=== PATIENT | female | born 1995 | race Caucasian/White ===

== ENCOUNTER 2020-12-07 17:34 | Emergency (ER) | payer SELFPAY ==
[2020-12-07 18:13] VITALS: BP 138/90; PULSE 74; RESP 18; TEMP 36.6; O2SAT 100
[2020-12-07 19:25] VITALS: BP 153/80; PULSE 69; RESP 18; TEMP 37.2; O2SAT 99
--- NOTE | 2020-12-07 19:28 | W.ED.GENAD ---
Discharge Plan Disposition Patient Disposition: HOME Condition: Stable Discharge Details Clinical Impression: Puncture wound of plantar aspect of right foot Primary Care Provider: Unknown,Unknown ED Provider: Piter Berry Home Meds and New Rx's Prescriptions: New ciprofloxacin HCl [Cipro] 500 mg tablet 500 mg PO BID Qty: 20 RF: 0 Discharge Instructions Instructions: Puncture Wound (ED) Additional Instructions: Tetanus has been updated. Please take Cipro as directed. X-ray recommended but declined. Please watch for new or worsening symptoms and return to the ER for any concerns. Otherwise contact her primary care provider on Thursday to discuss ER visit need for outpatient reevaluation. Medical Decision Making 25-year-old female presents for a plantar puncture wound of the fourth right toe. Reports tetanus status is not up-to-date. Will update tetanus now. Patient is agreeable to initiating antibiotic therapy but declines an x-ray. We discussed the risks of retained foreign body, patient understands but declines x-ray. Puncture wound was cleaned and dressed. Patient has no additional questions or concerns and is comfortable discharge at this time. HPI General Mode of arrival: ambulatory. Date/Time Provider Initiated Documentation: 12/07/20 19:28. Limitations to Documentation: no limitations. Information obtained by: patient. HPI Narrative: This is a 25-year-old female presents to the ER after stepping on a nail around 4-5 PM today while wearing rubber soled shoes. She had a very superficial puncture wound to her right foot, fourth toe. Denies any pain, numbness, tingling, weakness. Patient is currently asymptomatic. She has no additional questions or concerns. States the area did bleed minimally, cleaned thoroughly. Related Data Home Medications Medication Instructions Recorded Confirmed ciprofloxacin HCl [Cipro] 500 mg PO BID #20 tab 12/07/20 Previous Rx's Medication Instructions Recorded ciprofloxacin HCl [Cipro] 500 mg PO BID #20 tab 12/07/20 Allergies Allergy/AdvReac Type Severity Reaction Status Date / Time No Known Allergies Allergy Unverified 12/07/20 18:16 General Stated Complaint: Laceration ALMA: 5 Review of Systems Constitutional Constitutional: Denies fever(s) and Denies weakness Musculoskeletal Musculoskeletal: Denies arthralgias, Denies numbness and Denies tingling Integumentary/Breasts Skin/Breast: Denies erythema Neurologic Neurologic: Denies numbness, Denies tingling and Denies weakness [facility] Social History Smoking/Tobacco Use Status: Never Smoking risk assessment performed?: Yes Alcohol Intake: current Drug use: Never Substance use type: does not use Do you feel safe at home: Yes Do you feel safe in your relationship?: Yes Exam Const General: cooperative, healthy appearing, comfortable and no acute distress Orientation: alert and awake [facility] Head: normal to inspection, normocephalic and atraumatic Eyes General: appearance normal, both eyes and all related structures Conjunctivae: conjunctivae normal Neck Neck: normal visual inspection, trachea midline and supple Resp Effort & Inspection: normal respiratory effort and able to speak in complete sentences Cardio Rate: regular rate Rhythm: regular rhythm Skin General skin exam: no rashes or lesions noted Neuro General: patient alert, patient awake, moves all extremities and no focal motor deficits Cognition: normal cognition Speech: speech normal Gait: normal gait Motor: muscle tone normal throughout Sensory Exam: no sensory deficits noted Extrem General: full ROM, capillary refill normal and normal gait Ankle/foot/toe images: 1. Nontender, nonbleeding, puncture wound. No obvious foreign body. Neuro, vascular, tendon intact. Full range of motion. Psych Appearance: grossly normal Mental Status: mental status grossly normal Course Vital Signs Vital signs: Vital Signs Temperature 36.6 C 12/07/20 18:13 Pulse 74 12/07/20 18:13 Respiratory Rate 18 12/07/20 18:13 Blood Pressure 138/90 12/07/20 18:13 Pulse Oximetry 100 12/07/20 18:13 Temperature 37.2 C 12/07/20 19:25 Temperature Source Temporal Artery Scan 12/07/20 19:25 Pulse 69 12/07/20 19:25 Respiratory Rate 18 12/07/20 19:25 Respiratory Effort 12/07/20 19:25 Respiratory Depth Normal 12/07/20 19:25 Respiratory Pattern Normal 12/07/20 19:25 Blood Pressure 153/80 H 12/07/20 19:25 Blood Pressure Mean 104 12/07/20 19:25 Blood Pressure Position Sitting 12/07/20 19:25 Pulse Oximetry 99 12/07/20 19:25 Oxygen Delivery Method Room Air 12/07/20 19:25 Oxygen Flow Rate 0 12/07/20 19:25 Pain Level 1 12/07/20 19:25
== END 2020-12-07 19:42 | disposition home or self-care (01) ==
PROVIDERS: Emergency Provider Physician Assistant
DX: S91.134A Puncture wound without foreign body of right lesser toe(s) without damage to nail, initial encounter (principal); W45.0XXA Nail entering through skin, initial encounter
CPT/HCPCS: 90471; 99284; 99283

== ENCOUNTER 2021-04-15 17:12 | Emergency (ER) | payer SELFPAY ==
[2021-04-15 17:25] VITALS: BP 136/83; PULSE 97; RESP 16; TEMP 37.3; O2SAT 97
--- NOTE | 2021-04-15 17:32 | ED.GENADUL_ITS ---
Discharge Plan Disposition Patient Disposition: HOME Condition: Improving Discharge Details Chief Complaint: Laceration Clinical Impression: Laceration of hand, left Primary Care Provider: Unknown,Unknown ED Provider: Frederick Taylor Home Meds and New Rx's Prescriptions: No Action No Known Home Meds RF: 0 Discharge Instructions Instructions: Laceration (ED) Additional Instructions: Leave current dressing in place for 2 days time. Then may remove. You will require daily Band-Aid/Band-Aid changes. Return if you develop a fever, redness, foul-smelling drainage from the wound or any other acute concerns. Please return for suture removal in 7 to 10 days time. Medical Decision Making 25-year-old female presents for left hand laceration off from the metal edge of a kitchen stove. She recently had her tetanus updated, there is no motor weakness and no sensory deficits. Wounds irrigated, anesthetized, examined in a bloodless field without evidence of foreign body, repaired with interrupted suture. Wound was dressed. Patient stable and improved. She will return for suture removal. HPI General Mode of arrival: ambulatory . Date/Time Provider Initiated Documentation: 04/15/21 17:12 . Limitations to Documentation: no limitations . Information obtained by: patient . History of Present Illness 25 year old F presents to the emergency department with the chief complaint of Left hand laceration, described as mild, Quality is described as dull and constant, and is localized to the left and upper extremity. Patient reports no radiation. Patient started experiencing this minute(s) and it has been constant. No relieving factors improve symptom(s), No exacerbating factors reported . Patient notes no other symptoms.. Patient did receive the following treatments prior to arrival, none Related Data Home Medications Medication Instructions Recorded Confirmed Unknown [No Known Home Meds] 04/15/21 04/15/21 Allergies Allergy/AdvReac Type Severity Reaction Status Date / Time No Known Allergies Allergy Unverified 04/15/21 17:27 General Stated Complaint: Laceration ALMA: 4 Review of Systems Narrative: Tetanus is up-to-date. No other injury. Has otherwise been well. 4 systems reviewed [facility] All Active Problems (Updated 04/15/21 @ 17:53 by Frederick Taylor MD) Puncture wound of plantar aspect of right foot (Acute) Laceration of hand, left (Acute) Social History Smoking/Tobacco Use Status: Never Smoking risk assessment performed?: Yes Alcohol Intake: current Alcohol Intake frequency: a few times a week Drug use: Never Substance use type: does not use Do you feel safe at home: Yes Do you feel safe in your relationship?: Yes Exam Narrative Exam Narrative: GEN: awake, alert, oriented 3. Pleasant, well groomed, interactive. EXT: Full ROM, laceration on the thenar eminence, palmar side of left hand. Sensation is intact throughout. Normal motor function including flexion abduction abduction of thumb. Neuro: Grossly normal neurologic exam, conversant, interactive. Psych: Speech fluent, thoughts congruent, affect normal Course Vital Signs Vital signs: Vital Signs Temperature 37.3 C 04/15/21 17:25 Pulse 97 H 04/15/21 17:25 Respiratory Rate 16 04/15/21 17:25 Blood Pressure 136/83 04/15/21 17:25 Pulse Oximetry 97 04/15/21 17:25 Temperature 37.3 C 04/15/21 17:25 Temperature Source Skin 04/15/21 17:25 Pulse 97 H 04/15/21 17:25 Respiratory Rate 16 04/15/21 17:25 Respiratory Effort 04/15/21 17:25 Blood Pressure 136/83 04/15/21 17:25 Blood Pressure Position Sitting 04/15/21 17:25 Pulse Oximetry 97 04/15/21 17:25 Oxygen Delivery Method Room Air 04/15/21 17:25 Oxygen Flow Rate 0 04/15/21 17:25 Pain Level 5 04/15/21 17:25 Procedures Laceration Laceration 1: Site: hand Side (If applicable): left Size (cm): 2.5 Description: irregular Local Anesthetic: Lidocaine 1% Amount of anesthesia used (mL): 1.5 Pre-repair: wound explored, irrigated extensively and deep structures intact Skin layer closed with: nylon Size (cm): 4-0 Number of sutures: 5 Technique: simple, interrupted
[2021-04-15 17:59] VITALS: BP 112/78; PULSE 78; RESP 16; TEMP 37.3; O2SAT 96
== END 2021-04-15 18:04 | disposition home or self-care (01) ==
PROVIDERS: Emergency Provider Emergency Medicine
DX: S61.412A Laceration without foreign body of left hand, initial encounter (principal); W26.8XXA Contact with other sharp object(s), not elsewhere classified, initial encounter
CPT/HCPCS: 12001

== ENCOUNTER 2021-04-24 15:35 | Emergency (ER) | payer SELFPAY ==
--- NOTE | 2021-04-24 15:49 | ED.GENADUL_ITS ---
Discharge Plan Disposition Patient Disposition: HOME Condition: Improving Discharge Details Chief Complaint: SutureRem Clinical Impression: Visit for suture removal Primary Care Provider: Unknown,Unknown ED Provider: Frederick Taylor Home Meds and New Rx's Prescriptions: No Action No Known Home Meds RF: 0 Discharge Instructions Additional Instructions: Return for any acute concerns. Leave current bandage in place for 24 hours. Underlying Steri-Strips should remain in place 3 to 5 days time and then will slowly curl and they be removed. Medical Decision Making 25-year-old female presents from home with evaluation of suture removal. I placed the sutures on April 15 and they have been healing well. No fever, discharge. Stitches removed, patient placed in Steri-Strip for additional few days. She is stable and appropriate for discharge. HPI General Mode of arrival: ambulatory . Date/Time Provider Initiated Documentation: 04/24/21 15:38 . Limitations to Documentation: no limitations . Information obtained by: patient . History of Present Illness 25 year old F presents to the emergency department with the chief complaint of Left hand laceration suture removal, and is localized to the left and upper extremity. Patient started experiencing this day(s) and it has been now resolved. No relieving factors improve symptom(s), No exacerbating factors reported . Patient notes denies fever/chills and rash. Patient did receive the following treatments prior to arrival, none Related Data Home Medications Medication Instructions Recorded Confirmed Unknown [No Known Home Meds] 04/15/21 04/24/21 Allergies Allergy/AdvReac Type Severity Reaction Status Date / Time No Known Allergies Allergy Unverified 04/24/21 15:40 General Stated Complaint: SutureRem ALMA: 5 Review of Systems Narrative: No fever, chills, discharge. 4 systems reviewed and otherwise negative [facility] All Active Problems (Updated 04/24/21 @ 15:51 by Frederick Taylor MD) Puncture wound of plantar aspect of right foot (Acute) Laceration of hand, left (Acute) Visit for suture removal (Acute) Social History Smoking/Tobacco Use Status: Never Smoking risk assessment performed?: Yes Alcohol Intake: current Alcohol Intake frequency: a few times a week Drug use: Never Substance use type: does not use Do you feel safe at home: Yes Do you feel safe in your relationship?: Yes Exam Narrative Exam Narrative: GEN: awake, alert, oriented 3. Pleasant, well groomed, interactive. EXT: Full ROM, left thenar eminence with healing laceration. No discharge, no erythema, normal motor and sensory exam. Neuro: Grossly normal neurologic exam, conversant, interactive. Psych: Speech fluent, thoughts congruent, affect normal Course Vital Signs Vital signs: Respiratory Effort Non-Labored 04/24/21 15:39 PAWSS Have you Been Recently Intoxicated or Drunk Within the Last 30 days?: No Have you Ever Experienced Previous Episodes of Alcohol Withdrawal?: No Have you ever Experienced Withdrawal Seizures?: No Have you ever Experienced Delirium Tremens(DT)s?: No Have you ever undergone Alcohol Rehabilitation Treatment (i.e, inpt ot outpatient treatment programs)?: No Have you ever Experienced Blackouts?: No Have you ever Combined Alcohol with other Downers within the last 90 days?: No Have you ever Combined Alcohol with any other Substance of Abuse during the last 90 days?: No Positive Blood Alcohol level on Presentation? [PCS.BAL]: No Evidence of Increased Autonomic Activity (i.e. HR>120, tremor, sweating, agita tion, nausea)?: No Result: 0
[2021-04-24 15:50] VITALS: BP 134/83; PULSE 84; RESP 16; TEMP 37; O2SAT 99
== END 2021-04-24 15:55 | disposition home or self-care (01) ==
PROVIDERS: Emergency Provider Emergency Medicine
DX: S61.412D Laceration without foreign body of left hand, subsequent encounter (principal); W26.8XXD Contact with other sharp object(s), not elsewhere classified, subsequent encounter; Z48.02 Encounter for removal of sutures

== ENCOUNTER 2021-11-01 16:14 | Outpatient (CLI) | payer MEDICAID, SELFPAY ==
[2021-11-01 16:42] LABS: Abs Immature Grans 0.05 10^3/uL (0.0-0.06); Absolute Basophil Count 0.04 10^3/uL (0.0-0.2); Absolute Eosinophil Count 0.12 10^3/uL (0.0-0.7); Absolute Lymphocyte Count 2.34 10^3/uL (1.2-3.4); Absolute Monocyte Count 0.95 10^3/uL (0.1-0.8); Absolute Neutrophil Count 8.35 10^3/uL (1.2-6.7); Basophils % 0.3; HCT 36.5 % (36.0-46.0); HGB 12.3 g/dL (11.2-15.7); Immature Grans % 0.4; Lymphocytes % 19.8; MCH 29.5 pg (27.0-33.0); MCHC 33.7 % (32.0-36.0); MCV 88 fL (80-95); MPV 11.1 fL (8.0-11.0); Neutrophils % 70.5; Platelet Count 323 10^3/uL (130-400); RBC 4.17 10^6/uL (3.93-5.22); RDW 13.2 % (11.7-14.6); RDW-SD 42.4 fL; WBC 11.84 10^3/uL (4.4-10.8)
[2021-11-01 16:59] LABS: Glucose,1 Hr (Glucola) 83 mg/dL (80-140)
[2021-11-01 18:19] LABS: TSH (W/Ref FT4) 1.15 uIU/mL (0.36-3.74)
[2021-11-04 10:18] LABS: Hepatitis B Surface Ag Negative (Negative)
[2021-11-04 10:29] LABS: Hepatitis C Ab w Rflx HCV PCR Negative (Negative)
[2021-11-04 11:07] LABS: HIV-1/2 Ag & Ab Screen Negative (Negative)
[2021-11-04 11:19] LABS: Varicella IgG Antibody Positive (See Note)
[2021-11-04 13:23] LABS: Rubella IgG Ab (UVM) Positive (See Note)
[2021-11-05 19:43] LABS: Syphilis IgG w/Reflex Nonreactive (Nonreactive)
[2021-11-12 14:00] LABS: Result Summary NEGATIVE
[2021-11-12 14:08] LABS: Specimen Whole Blood
== END 2021-11-01 16:15 | disposition home or self-care (01) ==
LOC: LBO 16:15
PROVIDERS: Visit Provider Advanced Practice Midwife
DX: Z34.91 Encounter for supervision of normal pregnancy, unspecified, first trimester (principal); Z36.89 Encounter for other specified antenatal screening; Z3A.11 11 weeks gestation of pregnancy
CPT/HCPCS: 36415; 82950; 86787; 86803; 86850; 86900; 86901; 87340; 87389; 81220; 84443; 85025; 86762; 86780

== ENCOUNTER 2021-11-01 16:34 | Outpatient (REF) | payer MEDICAID, SELFPAY ==
--- NOTE | 2021-11-01 16:00 | PAPFT_PTH ---
PATIENT: Екатерина Weaver LOC: [facility] U#:[id number] AGE/SX: 25/F ROOM: RE11/01/[address]: Laina Adames : 1995 BED: DIS: 11/01/2021 SPEC #: [id number] RECD: 11/01/21 17:27 STATUS: ABHIJEET REQ #: [id number] TORO: 11/01/21 16:[address]: Laina Adames DEPT: [facility] Cytology RECD BY: Sammie Borges ENTERED: 11/01/21 17:28 SP TYPE: PAPFT OT DR: Unknown,Unknown Tissues: 1 - CX/ENDOCX FOR PAP SMEARS Procedures: PAP THIN PREP/[facility] Screening Comments: [id number]
[2021-11-01 17:35] LABS: *AMPHETAMINES SCREEN URINE Negative (Negative); *BARBITURATES SCREEN URINE Negative (Negative); *BENZODIAZEPINES SCREEN URINE Negative (Negative); Cannabinoids THC Negative (Negative); Cocaine Screen,Urine Negative (Negative); METHADONE URINE SCREEN Negative (Negative); OPIATES URINE SCREEN Negative (Negative)
[2021-11-01 17:36] LABS: Tricyclic Antidepressants Negative (Negative)
[2021-11-04 14:57] LABS: Chlamydia Result Negative (Negative); GC Result Negative (Negative)
[2021-11-08 11:42] LABS: Buprenorphine Negative ng/mL (Cutoff: 5.0); Norbuprenorphine Negative ng/mL (Cutoff: 2.5)
== END 2021-11-01 16:35 | disposition home or self-care (01) ==
LOC: LBN 16:34
PROVIDERS: Visit Provider Advanced Practice Midwife
DX: Z34.91 Encounter for supervision of normal pregnancy, unspecified, first trimester (principal); N89.8 Other specified noninflammatory disorders of vagina; Z12.4 Encounter for screening for malignant neoplasm of cervix; Z11.3 Encounter for screening for infections with a predominantly sexual mode of transmission
CPT/HCPCS: 80307; 87077; 87491; 87591; 88142; 87086; 87186; 87480; 87510; 87660

== ENCOUNTER 2021-11-04 04:08 | Outpatient (CLI) | payer MEDICAID, SELFPAY | END 2021-11-04 04:09 | disposition home or self-care (01) | LOC: LBO 04:09 | PROVIDERS: Visit Provider Advanced Practice Midwife | DX: R69 Illness, unspecified (principal) | CPT/HCPCS: 36415 ==

== ENCOUNTER 2021-12-20 00:48 | Outpatient (CLI) | payer MEDICAID, SELFPAY ==
--- OUTSIDE RECORDS SUMMARY | 2021-12-20 00:59 | XMS_ITS | Encounter Summary ---
:1995 Demographics Home Phone Preferred Language Unknown Marital Status Unknown Adventist Affiliation Unknown Race Unknown Ethnic Group Unknown Author Organization [facility] Address [address] [place] [address] Care Team Providers Name Role Phone Unavailable Primary Care Provider Unavailable Encounter Details Date Type Department Care Team Description 11/04/2021 Lab Requisition [facility] Laina Adames ncounter for other Pathology & SUL[facility] [place] general examination Laboratory Medicine [address] [place], [place] [address] [facility] [address] [place] [address] Social History Tobacco Use Types Packs/Day Years Used Date Never Assessed Sex Assigned at Date Recorded Not on file documented as of this encounter Plan of Treatment Not on filedocumented as of this encounter Procedures Procedure Name Priority Date/Time Associated Diagnosis Comme nts PAP TEST Today 11/01/2021 16:00 EDT Encounter for other Results for this general examination procedur e are in the results section. documented in this encounter Results PAP TEST (11/01/2021 16:00 EDT) Specimens A. Cervix and/or [facility] MEDICAL Endocervix , ThinPrep CENTER Imaging System with LABORATORY Manual Evaluation SERVICES Specimen Adequacy Satisfactory for [facility] MEDICAL Evaluation - CENTER transformation zone LABORATORY component present SERVICES General Negative for [facility] MEDICAL Categorization intraepithelial CENTER lesion or malignancy LABORATORY SERVICES Descriptive Shift in mart [facility] MEDICAL Diagnosis present suggestive of CENTER bacterial vaginosis. LABORATORY SERVICES Attestation . [facility] Electronically CENTER signed by JONO Alvarez CT(ASCP) o n SERVICES 11/12/2021 at 12 46 Clinical History See below [facility] LABORATORY SERVICES Performing Lab [facility] LABORATORY SERVICES Scanned Images [facility] LABORATORY SERVICES Specimen Pap Test - Cervix and/or Endocervix Performing Organization Address City/State/ZIP Code Phon e Number [facility] LABORATORY [address] [place] [address] SERVICES documented in this encounter Visit Diagnoses Diagnosis Encounter for other general examination documented in this encounter
--- OUTSIDE RECORDS SUMMARY | 2021-12-20 00:59 | XMS_ITS | Encounter Summary ---
:1995 Demographics Home Phone Preferred Language Unknown Marital Status Unknown Hindu Affiliation Unknown Race Unknown Ethnic Group Unknown Author Organization [facility] Address [address] [place] [address] Care Team Providers Name Role Phone Unavailable Primary Care Provider Unavailable Encounter Details Date Type Department Care Team Description 11/02/2021 Lab Requisition [facility] Outr Resulting Lab, Pathology & Laboratory Provider [facility] [address] [place] [address] Social History Tobacco Use Types Packs/Day Years Used Date Never Assessed Sex Assigned at Date Recorded Not on file documented as of this encounter Plan of Treatment Not on filedocumented as of this encounter Procedures Procedure Name Priority Date/Time Associated Diagnosis Comme nts RUBELLA IGG Routine 11/01/2021 16:30 Results for this ANTIBODY EDT procedure are i n the results section. VARICELLA IGG Routine 11/01/2021 16:30 Results fo r this ANTIBODY EDT procedure are i n the results section. documented in this encounter Results VARICELLA IGG ANTIBODY (11/01/2021 16:30 EDT) Varicella IgG Ab PositiveComment: See Note [facility] Presence of LABORATORY SERVICES detectable Varicella Zoster virus IgG antibodies. Specimen Blood - Venous blood (substance) Performing Organization Address [facility] Code Phon e Number [facility] LABORATORY [address] [place] [address] SERVICES RUBELLA IGG ANTIBODY (11/01/2021 16:30 EDT) Rubella IgG Ab PositiveComment: See Note [facility] Positive for IgG LABORATORY SERVICES antibodies to Rubella virus. Specimen Blood - Venous blood (substance) Performing Organization Address [facility] Phon e Number [facility] LABORATORY [address] [place] [address] SERVICES documented in this encounter Visit Diagnoses Not on filedocumented in this encounter
--- OUTSIDE RECORDS SUMMARY | 2021-12-20 00:59 | XMS_ITS | Encounter Summary ---
:1995 Demographics Home Phone Preferred Language Unknown Marital Status Unknown Roman Catholic Affiliation Unknown Race Unknown Ethnic Group Unknown Author Organization [facility] Address [address] [place] [address] Care Team Providers Name Role Phone Unavailable Primary Care Provider Unavailable Encounter Details Date Type Department Care Team Description 11/02/2021 Lab Requisition [facility] Outr Resulting Lab, Pathology & Laboratory Provider [facility] [address] [place] [address] Social History Tobacco Use Types Packs/Day Years Used Date Never Assessed Sex Assigned at Date Recorded Not on file documented as of this encounter Plan of Treatment Not on filedocumented as of this encounter Procedures Procedure Name Priority Date/Time Associated Comments Diagnosis HIV 1/2 ANTIGEN AND Routine 11/01/2021 16:30 Resu lts for this ANTIBODY, 4TH EDT procedure are in GENERATION the results section. documented in this encounter Results HIV 1/2 ANTIGEN AND ANTIBODY, 4TH GENERATION (11/01/2021 16:30 EDT) HIV 1 and 2 NegativeComment: If Negative [facility] Antibody/p24 acute HIV-1 LABORATORY Antigen, 4th infection is SERVICES Generation suspected in a high risk patient, submit plasma specimen for HIV-1 RNA quantitation test. Specimen Blood - Venous blood (substance) Narrative [facility] LABORATORY SERVICES - 11/04/2021 11:02 EDT Fourth Generation assay performed on the Siemens Centaur XPT. Performing Organization Address City/State/ZIP Code Phon e Number [facility] LABORATORY [address] [place] [address] SERVICES documented in this encounter Visit Diagnoses Not on filedocumented in this encounter
--- OUTSIDE RECORDS SUMMARY | 2021-12-20 00:59 | XMS_ITS | Encounter Summary ---
:1995 Demographics Home Phone Preferred Language Unknown Marital Status Unknown Islam Affiliation Unknown Race Unknown Ethnic Group Unknown Author Organization [facility] Address [address] [place] [address] Care Team Providers Name Role Phone Unavailable Primary Care Provider Unavailable Encounter Details Date Type Department Care Team Description 11/02/[address] [facility] Outr Resulting Lab, Pathology & Laboratory Provider [facility] [address] [place] [address] Social History Tobacco Use Types Packs/Day Years Used Date Never Assessed Sex Assigned at Date Recorded Not on file documented as of this encounter Plan of Treatment Not on filedocumented as of this encounter Procedures Procedure Name Priority Date/Time Associated Diagnosis Comme nts HEPATITIS C AB W Routine 11/01/2021 16:30 Results for this REFLEX TO HCV RNA EDT procedure are in BY PCR the results section. HEPATITIS B SURFACE Routine 11/01/2021 16:30 Resu lts for this ANTIGEN EDT procedure are i n the results section. documented in this encounter Results HEPATITIS B SURFACE ANTIGEN (11/01/2021 16:30 EDT) Pathologist Sig nature Hep B Surface Ag Negative Negative [facility] LABORATORY SERVICES Specimen Blood - Venous blood (substance) Performing Organization Address [facility]/ZIP Code Phon e Number [facility] [address] [place] [address] SERVICES HEPATITIS C AB W REFLEX TO HCV RNA BY PCR (11/01/2021 16:30 EDT) Pathologist Sig nature Hep C Antibody Negative Negative [facility] LABORAT [facility] SERVICES Specimen Blood - Venous blood (substance) Performing Organization Address [facility]/ZIP Code Phon e Number [facility] [address] [place] [address] SERVICES documented in this encounter Visit Diagnoses Not on filedocumented in this encounter
--- OUTSIDE RECORDS SUMMARY | 2021-12-20 00:59 | XMS_ITS | Clinical Summary ---
:1995 Demographics Home Phone Preferred Language Unknown Marital Status Unknown Restorationism Affiliation Unknown Race Unknown Ethnic Group Unknown Author Organization [facility] Address [address] [place] [address] Care Team Providers Name Role Phone Unavailable Primary Care Provider Unavailable Encounters Date Type Specialty Care Team Description 11/04/2021 Lab Requisition Clinical Laboratory Laina Adames Encounter for other CheCARLY general examina tion 11/02/2021 Lab Requisition Clinical Laboratory Outr Resulting Lab, Provider 11/02/2021 Lab Requisition Clinical Laboratory Outr Resulting Lab, Provider 11/02/2021 Lab Requisition Clinical Laboratory Outr Resulting Lab, Provider 11/02/2021 Lab Requisition Clinical Laboratory Outr Resulting Lab, Provider from Last 3 Months Social History Tobacco Use Types Packs/Day Years Used Date Never Assessed Sex Assigned at Date Recorded Not on file Plan of Treatment Health Maintenance Due Date Last Done Comments COVID-19 Vaccine (#1) 05/20/1994 Hepatitis C Screen Completed 11/01/2021 Procedures Procedure Name Priority Date/Time Associated Diagnosis Comme nts CHLAMYDIA/N. Routine 11/01/2021 17:00 Results for this GONORRHOEAE EDT procedure are i n AMPLIFIED RNA the results section. HEPATITIS B SURFACE Routine 11/01/2021 16:30 Resu lts for this ANTIGEN EDT procedure are i n the results section. HEPATITIS C AB W Routine 11/01/2021 16:30 Results for this REFLEX TO HCV RNA BY EDT procedu re are in PCR the results section. VARICELLA IGG Routine 11/01/2021 16:30 Results fo r this ANTIBODY EDT procedure are i n the results section. RUBELLA IGG ANTIBODY Routine 11/01/2021 16:30 Res ults for this EDT procedure are i n the results section. HIV 1/2 ANTIGEN AND Routine 11/01/2021 16:30 Resu lts for this ANTIBODY, 4TH EDT procedure are in GENERATION the results section. PAP TEST Today 11/01/2021 16:00 Encounter for other Resu lts for this EDT general examination procedur e are in the results section. from Last 3 Months Results CHLAMYDIA/N. GONORRHOEAE AMPLIFIED RNA (11/01/2021 17:00 EDT) Pathologist Sig nature Gonococcus Result Negative Negative [facility] Chlamydia Result Negative Negative [facility] Specimen Swab - Entire endocervix (body structure ) Performing Organization Address City/[facility]/ZIP Code Phon e Number [facility] [address] [place] [address] SERVICES HEPATITIS C AB W REFLEX TO HCV RNA BY PCR (11/01/2021 16:30 EDT) Pathologist Sig nature Hep C Antibody Negative Negative [facility] [place] SERVICES Specimen Blood - Venous blood (substance) Performing Organization Address [facility]/ZIP Code Phon e Number [facility] [address] [place] [address] SERVICES RUBELLA IGG ANTIBODY (11/01/2021 16:30 EDT) Rubella IgG Ab PositiveComment: See Note [facility] Positive for IgG LABORATORY SERVICES antibodies to Rubella virus. Specimen Blood - Venous blood (substance) Performing Organization Address City/[facility]/ZIP Code Phon e Number [facility] [address] [place] [address] SERVICES HEPATITIS B SURFACE ANTIGEN (11/01/2021 16:30 EDT) Pathologist Sig nature Hep B Surface Ag Negative Negative [facility] Specimen Blood - Venous blood (substance) Performing Organization Address City/[facility]/ZIP Code Phon e Number [facility] [address] [place] [address] SERVICES VARICELLA IGG ANTIBODY (11/01/2021 16:30 EDT) Varicella IgG Ab PositiveComment: See Note [facility] Presence of LABORATORY SERVICES detectable Varicella Zoster virus IgG antibodies. Specimen Blood - Venous blood (substance) Performing Organization Address City/[facility]/ZIP Code Phon e Number [facility] [address] [place] [address] SERVICES HIV 1/2 ANTIGEN AND ANTIBODY, 4TH GENERATION (11/01/2021 16:30 EDT) HIV 1 and 2 NegativeComment: If Negative [facility] Antibody/p24 acute HIV-1 LABORATORY Antigen, 4th infection is SERVICES Generation suspected in a high risk patient, submit plasma specimen for HIV-1 RNA quantitation test. Specimen Blood - Venous blood (substance) Narrative [facility] - 11/04/2021 11:02 EDT Fourth Generation assay performed on the Siemens Centaur XPT. Performing Organization Address City/[facility]/ZIP Code Phon e Number [facility] [address] [place] [address] SERVICES PAP TEST (11/01/2021 16:00 EDT) Specimens A. Cervix and/or [facility] MEDICAL Endocervix , ThinPrep CENTER Imaging System with LABORATORY Manual Evaluation SERVICES Specimen Adequacy Satisfactory for [facility] MEDICAL Evaluation - CENTER transformation zone LABORATORY component present SERVICES General Negative for [facility] intraepithelial [place] lesion or malignancy LABORATORY SERVICES Descriptive Shift in mart [facility] MEDICAL Diagnosis present suggestive of CENTER bacterial vaginosis. LABORATORY SERVICES Attestation . [facility] CENTER signed by JONO Alvarez CT(ASCP) o n SERVICES 11/12/2021 at 12 46 Clinical History See below [facility] Performing Lab [facility] Scanned Images [facility] Specimen Pap Test - Cervix and/or Endocervix Performing Organization Address City/State/ZIP Code Phon e Number [facility] [address] [place] [address] SERVICES from Last 3 Months
--- NOTE | 2021-12-20 06:30 | DI.US_ITS ---
Exam(s) US OB 2-3 TRIMESTER EXAM: US OB 2-3 TRIMESTER CLINICAL HISTORY: .Z34.90. TECHNIQUE: Transabdominal obstetrical ultrasound was performed. COMPARISON: No exams were available for comparison FINDINGS: There is a single viable intrauterine gestation with cardiac activity identified-141 bpm. Amniotic fluid: There is a normal amount of amniotic fluid. Placental location: The placenta is anterior grade 1, with distance from tip of placenta to the inter nal cervical os is 2 cm on today's study. Cervical length is 4.1 cm ANATOMY: A 3 vessel umbilical cord is seen. A four-chamber cardiac view was obtained. Right and left ventricular outflow tracts were imaged. There are no obvious abnormalities of the spinal column evident. There is no obvious abnormal ity of the anterior abdominal wall. stomach and urinary bladder are identified and there is no evidence of hydronephrosis. No abnormalities of the upper lip region are identified. No evidence of choroid plexus cysts i n the brain. Dating parameters place this at approximately 18 weeks and 4 days gestational age. BPD measures 18 weeks and 4 days HC measures 18 weeks and 3 days AC measures 18 weeks and 6 days FL measures 18 weeks and 2 days Estimated weight is 247 gm-0 pounds 9 ounces Fetus is at the 64th percentile on the Hadlock scale. IMPRESSION:: Single viable intrauterine gestation which is approximately 18 weeks and 4 days gestati onal age, implying an DANNA of May 19, 2022. There are no obvious anomalies evident on today's study. The placenta is anterior with no evidence of placenta previa. There is a normal amount of amniotic fluid. DATA REPOSITORY:
== END 2021-12-20 01:08 ==
LOC: DI 00:48
PROVIDERS: Visit Provider Advanced Practice Midwife
DX: Z34.92 Encounter for supervision of normal pregnancy, unspecified, second trimester (principal)
CPT/HCPCS: 76805

== ENCOUNTER 2022-02-28 01:06 | Outpatient (CLI) | payer MEDICAID, SELFPAY ==
[2022-02-28 09:05] LABS: HCT 33.4 % (36.0-46.0); HGB 10.8 g/dL (11.2-15.7); MCH 29.7 pg (27.0-33.0); MCHC 32.3 % (32.0-36.0); MCV 92 fL (80-95); MPV 10.6 fL (8.0-11.0); Platelet Count 267 10^3/uL (130-400); RBC 3.64 10^6/uL (3.93-5.22); RDW 14.7 % (11.7-14.6); RDW-SD 49.4 fL; WBC 8.63 10^3/uL (4.4-10.8)
[2022-02-28 09:12] LABS: Glucose,1 Hr (Glucola) 122 mg/dL (80-140)
== END 2022-02-28 01:07 | disposition home or self-care (01) ==
LOC: LBO 01:06
PROVIDERS: Visit Provider Advanced Practice Midwife
DX: O26.893 Other specified pregnancy related conditions, third trimester (principal); O36.0130 Maternal care for anti-D [Rh] antibodies, third trimester, not applicable or unspecified; Z67.91 Unspecified blood type, Rh negative; Z3A.28 28 weeks gestation of pregnancy
CPT/HCPCS: 36415; 82950; 85027; 86850; 90384

== ENCOUNTER 2022-03-31 13:35 | Outpatient (CLI) | payer MEDICAID, SELFPAY ==
[2022-03-31 13:47] VITALS: BP 120/70; PULSE 76; TEMP 37.7
[2022-03-31 13:56] VITALS: BP 118/70; PULSE 78
[2022-03-31 13:57] VITALS: BP 118/70; PULSE 78
[2022-03-31] MEDS: Lactated Ringers 1,000 ML 1000 ML IV (14:33)
--- NOTE | 2022-03-31 14:36 | W.OBNST ---
Date of service: 03/31/22 Time of Service: 14:36 NST Evaluation Reason for NST Reasons for Nonstress Test: OTHER, SEE COMMENT Reason for NST Other: elevated BP in office, concentrated urine with protein+ on dip Gestational Age Gestational Age in Weeks and Days: 32 Weeks and 5Days Test and Monitor Explained Test/Monitor Explained: Test Explained, Monitor Explained and Patient Verbalized Understanding Vital Signs Blood Pressure: 120/70 Pulse: 76 Temperature: 99.9 F Urine Results Urine Protein: Negative (sp. gr: 0.010) Urine Ketones: Negative Urine Glucose: Negative Urine Blood: Negative NST Information Time on Monitor: 13:20 Date off Monitor: 03/31/22 Time off Monitor: 14:11 NST Interventions: PO Hydration NST Evaluation Patient States Movement: Present FHR Baseline: 125 Variability: Moderate 6-25 bpm Accelerations: 15x15 Decelerations: None NST Results: Reactive Note NST Note Note: Normotensive x3 in center, no pedal edema, patellar reflexes are nml. NST reactive, abd soft and nontender to palpation Pt denies any palm or sole itchiness today, eye twitch she had earlier has resolved. Dehydration corrected, pt opted for 1 liter LR IV infusion bolus, is drinking water without emesis Discharged to home, f/up with appt in 2 wks NST Reviewed and Verified by: Shellie Groves
[2022-03-31 14:40] VITALS: BP 120/70; PULSE 76; TEMP 37.7
== END 2022-03-31 15:32 | disposition home or self-care (01) ==
LOC: BCD 13:44 → OBS 13:45
PROVIDERS: Visit Provider Advanced Practice Midwife
DX: O16.3 Unspecified maternal hypertension, third trimester; Z3A.32 32 weeks gestation of pregnancy
CPT/HCPCS: 59025; 96360

== ENCOUNTER 2022-04-29 16:45 | Outpatient (REF) | payer MEDICAID, SELFPAY ==
[2022-04-29 15:14] LABS: *AMPHETAMINES SCREEN URINE Negative (Negative); *BARBITURATES SCREEN URINE Negative (Negative); *BENZODIAZEPINES SCREEN URINE Negative (Negative); Cannabinoids THC Negative (Negative); Cocaine Screen,Urine Negative (Negative); METHADONE URINE SCREEN Negative (Negative); OPIATES URINE SCREEN Negative (Negative)
[2022-04-29 15:15] LABS: Tricyclic Antidepressants Negative (Negative)
[2022-05-02 16:51] LABS: Buprenorphine Negative ng/mL (Cutoff: 5.0); Norbuprenorphine Negative ng/mL (Cutoff: 2.5)
== END 2022-04-29 16:46 | disposition home or self-care (01) ==
LOC: LBN 16:45
PROVIDERS: Visit Provider Advanced Practice Midwife
DX: Z34.93 Encounter for supervision of normal pregnancy, unspecified, third trimester (principal); Z3A.36 36 weeks gestation of pregnancy
CPT/HCPCS: 80307; 80348; 87081

== ENCOUNTER 2022-05-10 04:50 | Inpatient (IN) | payer MEDICAID, SELFPAY ==
[2022-05-10] VITALS (36 sets, daily range): BP systolic 98–133; BP diastolic 54–79; PULSE 75–121; RESP 16–18; TEMP 36.5–37.1; O2SAT 98–100; BMI 33.0
[2022-05-10 05:07] LABS: Source Nasal/Nares
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
[2022-05-10] MEDS: Lactated Ringers 1,000 ML 125 ML IV (05:39)
[2022-05-10 05:40] LABS: COVID-19 PCR Negative (Negative)
[2022-05-10] MEDS: Normal Saline Flush 10 ML SYR IVP (05:43)
[2022-05-10 05:45] LABS: HCT 34.7 % (36.0-46.0); HGB 11.5 g/dL (11.2-15.7); MCH 29.3 pg (27.0-33.0); MCHC 33.1 % (32.0-36.0); MCV 89 fL (80-95); MPV 12.1 fL (8.0-11.0); Platelet Count 216 10^3/uL (130-400); RBC 3.92 10^6/uL (3.93-5.22); RDW 14.3 % (11.7-14.6); RDW-SD 45.7 fL; WBC 11.05 10^3/uL (4.4-10.8)
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
--- NOTE | 2022-05-10 06:31 | W.ANESPROC ---
Intrathecal Analgesia Date Performed: 05/10/22 Procedure Time: 06:09 Requesting Provider: Shellie Groves Procedure Location: Obstetrics Reason Performed: Labor Intrathecal Analgesia Standard Monitors Applied: Blood Pressure and SpO2 Patient Position: Sitting Timeout Performed: Yes Sedation Given (Indicate Dose Given): No Sedation given Patient Mental Status: Awake Sterility: Hand Hygiene, Surgical Cap, Surgical Mask, Sterile Gloves, Sterile Drape/Sheet and Chlorhexidine Placement Site: L4-L5 Interspace Spinal Needle Type: Sancho 25 Gauge Needle Length: 5 Inch Spinal Procedure: Site Prepped, Sterile Drape Placed, 1% Lidocaine to skin and subcutaneous tissue with 25G needle, Introducer Needle Used, Spinal Needle Placed, Negative Heme, Positive CSF Flow and Medication Injected Paresthesia: Left Paresthesia Duration: Transient Spinal Local Anesthetic (Indicate Dose Given): Bupivacaine 0.25% PF (ml) Dose:: 1 ml Additives (Indicate Dose Given): Fentanyl PF Dose:: 25 mcg and Duramorph PF Dose:: 150 mcg Ultrasound: Not Used Number of Attempts (See previous attempts in note section): 2 Procedure Tolerated: No Complications and Patient tolerated well Procedure Outcome: Successful Performed By: Dakota Chamberlain
--- NOTE | 2022-05-10 07:13 | W.PM.OBNL1 ---
Date of service: 05/10/22 Time of Service: 07:14 Pelvic Exam Dilation: 9 Effacement (%): 100 station: 0 Cervix Position: anterior Contractions Monitor Mode: External Contraction Frequency(min): q3-4 Contraction Duration(sec): 40-50 Intensity: Moderate Fetus A Monitor: External (US) Heart Rate Baseline: 140 Presentation: Cephalic Variability: Moderate (6-25 BPM) Categories: Category I Accelerations: 15 X 15 Decelerations: None Amniotic Membrane Status: Ruptured Amniotic Fluid: Meconium Assessment and Plan Assessment and plan (1) PROM with onset of labor within 24 hours of rupture: Status: Acute Assessment and plan: A: Active labor, intrathecal anesthesia Category 1 tracing P: Monitor for progress into second stage Position to encourage rotation and descent Anticipate Objective Abnormal lab results 05/10/22 Range/Units 05:37 WBC 11.05 H (4.4-10.8) 10^3/uL RBC 3.92 L (3.93-5.22) 10^6/uL Hct 34.7 L (36.0-46.0) % MPV 12.1 H (8.0-11.0) fL Temp Pulse Resp BP Pulse Ox 97.7 F 85 18 130/78 100 05/10/22 06:09 05/10/22 07:07 05/10/22 06:09 05/10/22 07:07 05/10/22 06:21 Laboratory Results WBC 11.05 10^3/uL (4.4-10.8) H 05/10/22 05:37 RBC 3.92 10^6/uL (3.93-5.22) L 05/10/22 05:37 Hgb 11.5 g/dL (11.2-15.7) 05/10/22 05:37 Hct 34.7 % (36.0-46.0) L 05/10/22 05:37 MCV 89 fL (80-95) 05/10/22 05:37 MCH 29.3 pg (27.0-33.0) 05/10/22 05:37 MCHC 33.1 % (32.0-36.0) 05/10/22 05:37 RDW 14.3 % (11.7-14.6) 05/10/22 05:37 Plt Count 216 10^3/uL (130-400) 05/10/22 05:37 MPV 12.1 fL (8.0-11.0) H 05/10/22 05:37 COVID-19 Source Nasal/Nares 05/10/22 04:55 SARS-CoV-2 (PCR) Negative (Negative) 05/10/22 04:55 Patient ABO/Rh O Negative 05/10/22 05:37 Antibody Screen NEGATIVE 05/10/22 05:37 Objective Narrative Objective Narrative: Intrathecal anesthesia is effective for pt Progressed to 9 cm, 0 station Category 1 tracing Normotensive, afebrile FOB bedside providing support Subjective Interval history since last seen: comfortable, sleepy
[2022-05-10] MEDS: Oxytocin/Normal Saline 30 UNIT/500 ML BAG 95 UNITS IV (09:00)
--- NOTE | 2022-05-10 09:21 | OBVDS_ITS ---
Date of service: 05/10/22 Time of Service: 09:21 OB Labor/ Delivery Information Baby A Delivery Delivery Method: Spontaneaous Presentation: Cephalic Cephalic Position: Vertex Vertex Position: Right Occipital Anterior Cord Description-Baby A: 3 Vessels Amniotic Fluid: Meconium Estimated Blood Loss: 250 Delivery Outcome: Liveborn Transferred: Remains with Mother Note: Pt rested comfortably LLP after intrathecal was initiated, she eventually reported increasing pelvic pressure and was found to be fully dilated @ +1 station, 2nd stage huddle was completed and coached pushing efforts began. Pt used several different positions including side lying, semi-fowlers, and hands and knees with closed knee position where excellent descent was observed. A second 2nd stage huddle was completed, FHT remained category 1 throughout. in semifowlers over intact perineum of a vigorous male with yellow meconium staining, infant to mother's arms immediately and S2S initiated. Pitocin bolus IV started, cord ceased pulsating at 4 minutes, cord clamped and cut by FOB, cord blood collected, G[place] placenta intact with 3VC. Perineum and vulva/vagina inspected, small 1st degree perineal laceration repaired under intrathecal anesthesia with 3.0 Vicryl. Strong family bonding observed, apgars 8/9, weight 3715 gms. Providers Nurse Assembly Machine Tool Setter: Shellie Groves Retail Client Solutions Analyst: Dakota Chamberlain Nurse: Beverly Malik Nurse: Eleonora Villagran Labor/Delivery Information Number of Babies in Womb: 1 Steroids Given: None Reason Steroids Not Administered: N/A Group Beta Strep: Negative Antibiotics Administered: No Rubella Status: Immune Blood Type: O- Varicella Immunity: Immune Shoulder Dystocia: No Stages of Labor Onset of Labor Date: 05/10/22 Onset of Labor Time: 01:00 Complete Dilatation Date: 05/10/22 Complete Dilatation Time: 07:42 Labor - Stage 1 Duration: 6 hours and 42 minutes ROM Baby A: 05/10/22 ROM Baby A: 01:00 ROM Total Time- Baby A: [id number] Delivery Date-Baby A: 05/10/22 Delivery Time-Baby A: 08:54 Labor Stage 2 Duration: 1 hours and 12 minutes Placenta Delivery Date-Baby A: 05/10/22 Placenta Delivery Time-Baby A: 09:03 Labor-Stage 3 Duration: 9 minutes Total Length of Labor-Baby A: 7 hours and 54 minutes Placenta Status: Delivered Baby A Gender: Male Gestational Status: Early Term (37-38.6 wks) Gestational Age in Weeks/Days: 38 Weeks and 3 Days weight: 8 lb 3.043 oz Weight Comment: 3715 gms Score-1 Minute Interval(Baby A) Heart Rate-1 minute: 100 BPM or Greater Respiratory Effort- 1 minute: Spontaneous/Strong Cry Muscle Tone-1 minute: Active Movement Reflex Response-1 minute: Prompt Response Color-1 minute: Pallor or Cyanosis Total Score-1 minute: 8 Score-5 Minute Interval(Baby A) Heart Rate- 5 minute: 100 BPM or Greater Respiratory Effort-5 minute: Spontaneous/Strong Cry Muscle Tone-5 minute: Active Movement Reflex Response-5 minute: Prompt Response Color-5 minute: Bluish Hands or Feet Total Score- 5 minute: 9
--- NOTE | 2022-05-10 11:23 | W.ANESPOSTOP ---
Postoperative Evaluation Date, Time and Location Date Performed: 05/10/22 Time Performed: 10:05 Patient Location: Obstetrics Vital Signs Most Recent Imported Vital Signs: Most Recent Vital Signs Temp Pulse Resp BP Pulse Ox 36.5 C 83 18 123/59 L 100 05/10/22 06:09 05/10/22 11:03 05/10/22 06:09 05/10/22 11:03 05/10/22 06:21 Pain Score Most Recent Pain Score: Most recent pain score of 2/10 Assessment Mental Status: Awake (Alert & Oriented to Patient Baseline) Airway and Respiratory Function: Patent airway with normal (patient baseline) respiratory exam Cardiovascular Function: Hemodynamically Stable Hydration Status: Adequately Hydrated Nausea & Vomiting: No Nausea or Vomiting Pain: Pt. Denies Any Pain Peripheral Nerve Block: Regional nerve block not resolved at time of post operative discharge (Intrathecal spinal worn off appropriately)
[2022-05-10] MEDS: Ondansetron 4 MG/2 ML VIAL IVP (12:20)
[2022-05-10] MEDS: Dibucaine 1% 28 GM TUBE TP (13:41)
[2022-05-10] MEDS: Hamamelis Leaf/Glycerin 100 EACH BOX PR (13:41)
[2022-05-10] MEDS: Ibuprofen 600 MG TAB PO (19:35)
[2022-05-11 00:25] VITALS: BP 111/88; PULSE 84; RESP 18; TEMP 36.9
--- NOTE | 2022-05-11 07:26 | W.PM.OBPNV1 ---
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 Plan Caya diaphragm for BCM Written instructions reviewed and given to pt Subjective Subjective Patient comments: No complaints, Pain well controlled, Tolerating diet and Flatus present Patient's Mood: happy [place] baby status: Doing well, Nursing well, Rooming in and Strong Bonding Observed [place] feeding status: Exclusively breast feeding Exam Physical Exam Vital signs: Temp Pulse Resp BP Pulse Ox 98.4 F 84 18 111/88 100 05/11/22 00:25 05/11/22 00:25 05/11/22 00:25 05/11/22 00:25 05/10/22 06:21 Vital Signs Reviewed: Yes Constitutional Constitutional: no acute distress, average body habitus and cooperative HEENT Exam HEENT Exam: Normal Neck Exam Neck Exam: Normal Breast Exam Bilateral: Breast Exam: Normal and Soft Nipple Exam: Normal and Uninjured Respiratory Exam Respiratory Exam: Normal Cardiovascular Exam Cardiovascular Exam: Normal Abdominal Exam Abdomen: Other (Soft, nontender) Fundal Exam Fundus: Below Umbilicus and Firm Rectal Exam Rectal Exam: Normal Exam Patient deferred: external exam Extremities Exam Extremity Exam: Normal, Full ROM and Warm to Touch Back/Spine/Pelvis Exam Back Exam: Normal Skin Exam Skin Exam: Normal Neurological Exam Neurological Exam: Normal Psychiatric Exam Psychiatric Exam: Normal
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
[2022-05-11 09:00] VITALS: BP 115/75; PULSE 80; RESP 16; TEMP 36.7
[2022-05-11] MEDS: Hamamelis Leaf/Glycerin 100 EACH BOX PR (11:30)
[2022-05-11] MEDS: Dibucaine 1% 28 GM TUBE TP (11:30)
== END 2022-05-11 12:55 | disposition home or self-care (01) | DRG 806 ==
PROVIDERS: Admitting Provider Advanced Practice Midwife; Visit Provider Advanced Practice Midwife
DX: O42.02 Full-term premature rupture of membranes, onset of labor within 24 hours of rupture (principal); O36.0930 Maternal care for other rhesus isoimmunization, third trimester, not applicable or unspecified; Z37.0 Single live birth; Z3A.38 38 weeks gestation of pregnancy; O99.344 Other mental disorders complicating childbirth; F41.8 Other specified anxiety disorders; O77.0 Labor and delivery complicated by meconium in amniotic fluid; O70.0 First degree perineal laceration during delivery
CPT/HCPCS: 85027; 85461; 86850; 86900; 86901; 87635; 90384; J2405; J2790; J3010

== ENCOUNTER 2022-06-19 15:06 | Outpatient (REF) | payer MEDICAID, SELFPAY | END 2022-06-19 15:07 | disposition home or self-care (01) | LOC: LBN 15:06 | PROVIDERS: Visit Provider Advanced Practice Midwife | DX: N89.8 Other specified noninflammatory disorders of vagina (principal) | CPT/HCPCS: 87480; 87510; 87660 ==

== ENCOUNTER 2022-12-15 10:43 | Emergency (ER) | payer MEDICAID, SELFPAY ==
[2022-12-15 10:46] VITALS: BP 133/64; PULSE 78; RESP 18; TEMP 36.8; O2SAT 100
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
[2022-12-15] MEDS: Amoxicillin 875/Clav. 125 TAB PO (11:16)
[2022-12-15] MEDS: Ketorolac 15 MG/ML VIAL IM (11:16)
[2022-12-15] MEDS: Acetaminophen 325 MG TAB 650 MG PO (11:16)
== END 2022-12-15 11:21 | disposition home or self-care (01) ==
PROVIDERS: Emergency Provider Student in an Organized Health Care Education/Training Program
DX: R68.84 Jaw pain (principal)
CPT/HCPCS: 96372; 99283; J1885

== ENCOUNTER 2023-01-27 01:56 | Outpatient (CLI) | payer MEDICAID, SELFPAY ==
[2023-01-27 13:47] LABS: Panorama Kit Sent via Fed Ex
[2023-01-27 14:01] LABS: Abs Immature Grans 0.03 10^3/uL (0.0-0.06); Absolute Basophil Count 0.05 10^3/uL (0.0-0.2); Absolute Eosinophil Count 0.21 10^3/uL (0.0-0.7); Absolute Lymphocyte Count 2.45 10^3/uL (1.2-3.4); Absolute Monocyte Count 0.66 10^3/uL (0.1-0.8); Absolute Neutrophil Count 5.01 10^3/uL (1.2-6.7); Basophils % 0.6; Eosinophils % 2.5; HCT 35.7 % (36.0-46.0); HGB 12.1 g/dL (11.2-15.7); Immature Grans % 0.4; Lymphocytes % 29.1; MCH 29.6 pg (27.0-33.0); MCHC 33.9 % (32.0-36.0); MCV 87 fL (80-95); MPV 10.9 fL (8.0-11.0); Monocytes % 7.8; Neutrophils % 59.6; Platelet Count 367 10^3/uL (130-400); RBC 4.09 10^6/uL (3.93-5.22); RDW 13.6 % (11.7-14.6); RDW-SD 43.1 fL; WBC 8.41 10^3/uL (4.4-10.8)
[2023-01-28 09:16] LABS: HIV-1/2 Ag & Ab Screen Negative (Negative)
[2023-01-28 09:41] LABS: Hepatitis C Ab w Rflx HCV PCR Negative (Negative)
[2023-01-28 10:41] LABS: Varicella IgG Antibody Positive (See Note)
[2023-01-28 13:27] LABS: Rubella IgG Ab (UVM) Equivocal (See Note)
[2023-01-28 15:03] LABS: Hepatitis B Surface Ag Negative (Negative)
[2023-01-29 13:19] LABS: Syphilis IgG w/Reflex Nonreactive (Nonreactive)
== END 2023-01-27 01:57 | disposition home or self-care (01) ==
LOC: LBO 01:56
PROVIDERS: Visit Provider Advanced Practice Midwife
DX: Z34.91 Encounter for supervision of normal pregnancy, unspecified, first trimester (principal)
CPT/HCPCS: 36415; 86787; 86803; 86850; 86900; 86901; 87340; 87389; 85025; 86762; 86780

== ENCOUNTER 2023-01-27 13:37 | Outpatient (REF) | payer MEDICAID, SELFPAY ==
[2023-01-27 15:21] LABS: *AMPHETAMINES SCREEN URINE Negative (Negative); *BARBITURATES SCREEN URINE Negative (Negative); *BENZODIAZEPINES SCREEN URINE Negative (Negative); Cannabinoids THC Negative (Negative); Cocaine Screen,Urine Negative (Negative); METHADONE URINE SCREEN Negative (Negative); OPIATES URINE SCREEN Negative (Negative)
[2023-01-27 15:22] LABS: Tricyclic Antidepressants Negative (Negative)
[2023-01-28 15:20] LABS: Chlamydia Result Negative (Negative); GC Result Negative (Negative)
[2023-01-31 12:53] LABS: Buprenorphine Negative ng/mL (Cutoff: 5.0); Norbuprenorphine Negative ng/mL (Cutoff: 2.5)
== END 2023-01-27 13:38 | disposition home or self-care (01) ==
LOC: LBN 13:37
PROVIDERS: Visit Provider Advanced Practice Midwife
DX: Z34.91 Encounter for supervision of normal pregnancy, unspecified, first trimester (principal)
CPT/HCPCS: 80307; 80348; 87491; 87591; 87086

== ENCOUNTER → 2023-03-23 02:24 | Outpatient (CLI) | payer MEDICAID, SELFPAY ==
--- NOTE | 2023-03-23 07:45 | DI.US_ITS ---
Exam(s) US OB 2-3 TRIMESTER EXAM: US OB 2-3 TRIMESTER CLINICAL HISTORY: anatomy,Z34.91. TECHNIQUE: Transabdominal obstetrical ultrasound performed. COMPARISON: US US OB 2-3 TRIMESTER from 12/20/2021 US POCUS EXAM from 01/05/2023 FINDINGS: Number of fetuses: 1 position: VARIED heart rate: 153bpm Placental location: There is a posterior and fundal grade 1 placenta. The placental tip is 6.7 cm fr om the internal os. No evidence of previa. Amniotic fluid index: Visually amount of fluid is within normal limits. ANATOMICAL SURVEY: Within normal limits. BIOMETRIC DATA: BPD: 4.48cm, 19weeks 4days HC: 17.03cm, 19weeks 4days AC: 14.91cm, 20weeks 1day FL: 3.13cm, 19weeks 5days Cisterna magna: 3.7mm Cerebellum: 1.64cm Lateral ventricle: 4.2 mm EFW: 320.63g, 0.71lb, 48.6% Composite Age: 19weeks 5days DANNA: 08/12/2023 Heart Rate: 153bpm ANATOMICAL SURVEY: Four-chambered heart: Unremarkable. RVOT: Unremarkable. LVOT: Unremarkable. Left-sided stomach: Unremarkable. urinary bladder: Unremarkable. Bilateral kidneys: Unremarkable. Three-vessel cord: Unremarkable. Cord insertion: Unremarkable. Posterior fossa: Unremarkable. ventricles: Unremarkable. nose/lips: Unremarkable. Palate: Unremarkable. spine: Unremarkable. Two arms and two legs: Unremarkable. IMPRESSION: 1. Single live intrauterine gestation as above. 2. Normal anatomic survey. DATA REPOSITORY:
== END ==
PROVIDERS: Visit Provider Advanced Practice Midwife
DX: Z34.91 Encounter for supervision of normal pregnancy, unspecified, first trimester (principal)
CPT/HCPCS: 76805

== ENCOUNTER 2023-05-21 03:40 | Outpatient (CLI) | payer MEDICAID, SELFPAY ==
[2023-05-21 10:17] LABS: HCT 33.2 % (36.0-46.0); HGB 11.1 g/dL (11.2-15.7); MCH 29.8 pg (27.0-33.0); MCHC 33.4 % (32.0-36.0); MCV 89 fL (80-95); MPV 10.8 fL (8.0-11.0); Platelet Count 240 10^3/uL (130-400); RBC 3.73 10^6/uL (3.93-5.22); RDW 14.4 % (11.7-14.6); RDW-SD 46.1 fL; WBC 5.75 10^3/uL (4.4-10.8)
[2023-05-21 10:32] LABS: Glucose,1 Hr (Glucola) 128 mg/dL (80-140)
== END 2023-05-21 03:41 | disposition home or self-care (01) ==
LOC: LBO 03:40
PROVIDERS: Visit Provider Advanced Practice Midwife
DX: Z34.92 Encounter for supervision of normal pregnancy, unspecified, second trimester (principal); Z3A.19 19 weeks gestation of pregnancy
CPT/HCPCS: 36415; 82950; 85027; 86850; 90384

== ENCOUNTER 2023-06-15 16:40 | Outpatient (CLI) | payer MEDICAID, SELFPAY ==
[2023-06-15 17:14] VITALS: BP 116/67; PULSE 87; TEMP 36.9
[2023-06-15] MEDS: Normal Saline Flush 10 ML SYR IVP (18:02)
[2023-06-15] MEDS: DEXTROSE 5%-LACTATED RINGERS 1,000 ML 1000 ML IV ×2 (18:04→19:10)
[2023-06-15] MEDS: Ondansetron 4 MG/2 ML VIAL 8 MG IVP (18:18)
--- NOTE | 2023-06-16 07:15 | W.OBNST ---
Date of service: 06/15/23 Time of Service: 22:00 NST Evaluation Reason for NST Reasons for Nonstress Test: OTHER, SEE COMMENT Reason for NST Other: dehydration, GI virus Gestational Age Gestational Age in Weeks and Days: 31 Weeks and 6Days Test and Monitor Explained Test/Monitor Explained: Test Explained, Monitor Explained and Patient Verbalized Understanding Vital Signs Blood Pressure: 116/67 Pulse: 87 Temperature: 98.4 F Urine Results Urine Protein: Positive Urine Ketones: Positive Urine Glucose: Negative Urine Blood: Negative NST Information Date on Monitor: 06/15/23 Time on Monitor: 17:19 Date off Monitor: 06/15/23 Time off Monitor: 18:00 Total Time on Monitor: 41 NST Interventions: IV Fluids NST Evaluation Patient States Movement: Present FHR Baseline: 145 Variability: Moderate 6-25 bpm Accelerations: 10x10 Note Ultrasound Done: N/A. NST Note Note: Rehydrated with IVF, discharged home NST Reviewed and Verified by: Shellie Groves
[2023-06-16 07:16] VITALS: BP 116/67; PULSE 87; TEMP 36.9
== END 2023-06-15 22:09 | disposition home or self-care (01) ==
LOC: BCD 16:40 → OBS 18:29
PROVIDERS: Visit Provider Advanced Practice Midwife
DX: O99.891 Other specified diseases and conditions complicating pregnancy (principal); E86.0 Dehydration; A08.4 Viral intestinal infection, unspecified; Z3A.31 31 weeks gestation of pregnancy
CPT/HCPCS: 59025; J2405

== ENCOUNTER 2023-07-07 20:34 | Inpatient (IN) | payer MEDICAID, SELFPAY ==
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
[2023-07-07 21:17] LABS: HCT 30.1 % (36.0-46.0); HGB 10.2 g/dL (11.2-15.7); MCH 29.4 pg (27.0-33.0); MCHC 33.9 % (32.0-36.0); MCV 87 fL (80-95); MPV 11.8 fL (8.0-11.0); Platelet Count 213 10^3/uL (130-400); RBC 3.47 10^6/uL (3.93-5.22); RDW 13.4 % (11.7-14.6); RDW-SD 41.5 fL; WBC 10.96 10^3/uL (4.4-10.8)
[2023-07-07] MEDS: Penicillin G POT. 5,000,000 UNITS in Normal Saline 100 ML 200 UNITS IVPB (21:32)
[2023-07-07] MEDS: Normal Saline Flush 10 ML SYR IVP ×2 (21:35→22:29)
[2023-07-07 22:08] VITALS: BP 121/72; PULSE 94
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
== END 2023-07-07 23:00 | disposition short-term general hospital (02) | DRG 832 ==
LOC: OBS 20:39
PROVIDERS: Admitting Provider Advanced Practice Midwife; Visit Provider Advanced Practice Midwife
DX: O42.913 Preterm premature rupture of membranes, unspecified as to length of time between rupture and onset of labor, third trimester (principal); O36.0930 Maternal care for other rhesus isoimmunization, third trimester, not applicable or unspecified; Z3A.35 35 weeks gestation of pregnancy; O99.013 Anemia complicating pregnancy, third trimester; D64.9 Anemia, unspecified; O99.343 Other mental disorders complicating pregnancy, third trimester; F41.8 Other specified anxiety disorders
CPT/HCPCS: 85027; 86850; 86900; 86901; 86870; 87081; G0378; J2540

== ENCOUNTER 2023-07-09 13:00 | Outpatient (CLI) | payer MEDICAID, SELFPAY ==
[2023-07-09 13:08] VITALS: BP 121/64; PULSE 96; TEMP 36.5
[2023-07-09 13:28] VITALS: BP 121/64; PULSE 96
[2023-07-09] MEDS: Betamet Acet/Betamet Na Ph Inj. 30 MG/5 ML 12 MG IM (13:34)
--- NOTE | 2023-07-09 13:45 | W.OBNST ---
Date of service: 07/09/23 Time of Service: 13:40 NST Evaluation Reason for NST Reasons for Nonstress Test: OTHER, SEE COMMENT Reason for NST Other: POM Gestational Age Gestational Age in Weeks and Days: 35 Weeks and 2Days Test and Monitor Explained Test/Monitor Explained: Test Explained and Monitor Explained Vital Signs Blood Pressure: 121/64 Pulse: 96 Temperature: 97.7 F NST Information Date on Monitor: 07/09/23 Time on Monitor: 13:05 Date off Monitor: 07/09/23 Time off Monitor: 13:28 Total Time on Monitor: 23 NST Interventions: None NST Evaluation Patient States Movement: Present FHR Baseline: 135 Variability: Moderate 6-25 bpm Accelerations: 15x15 Decelerations: None NST Results: Reactive Note Ultrasound Done: N/A. NST Note Note: will do twice weekly NST and weekly DAVI. today's NST is reactive and reassuring and she received second dose of betamenthasone. NST Reviewed and Verified by: Laina Fernandez
[2023-07-09 13:46] VITALS: BP 121/64; PULSE 96; TEMP 36.5
== END 2023-07-09 13:42 | disposition home or self-care (01) ==
LOC: BCD 13:01 → OBS 13:04
PROVIDERS: Visit Provider Advanced Practice Midwife
DX: O36.0130 Maternal care for anti-D [Rh] antibodies, third trimester, not applicable or unspecified (principal); Z3A.35 35 weeks gestation of pregnancy
CPT/HCPCS: 59025; J0702

== ENCOUNTER 2023-07-10 11:42 | Outpatient (CLI) | payer MEDICAID, SELFPAY ==
[2023-07-10 12:24] VITALS: BP 122/71; PULSE 107; TEMP 36.8
[2023-07-10 12:39] VITALS: BP 122/71; PULSE 107
--- NOTE | 2023-07-10 13:12 | W.OBNST ---
Date of service: 07/10/23 Time of Service: 13:12 NST Evaluation Reason for NST Reasons for Nonstress Test: DECREASED MOVEMENT Gestational Age Gestational Age in Weeks and Days: 35 Weeks and 3Days Test and Monitor Explained Test/Monitor Explained: Test Explained, Monitor Explained and Patient Verbalized Understanding Vital Signs Blood Pressure: 122/71 Pulse: 107 Temperature: 98.2 F NST Information Date on Monitor: 07/10/23 Time on Monitor: 12:28 Date off Monitor: 07/10/23 Time off Monitor: 12:55 Total Time on Monitor: 27 NST Interventions: PO Hydration NST Evaluation Patient States Movement: Present FHR Baseline: 140 Variability: Moderate 6-25 bpm Accelerations: 15x15 Decelerations: None NST Results: Reactive Note Ultrasound Done: N/A. NST Note Note: Екатерина called this morning and has noticed less movement today. Reactive NST and fetus was active during exam. She denies contractions or leaking fluid. Signs of labor reviewed. Follow up with twice weekly NST at the center. NST Reviewed and Verified by: Laina Adames
[2023-07-10 13:13] VITALS: BP 122/71; PULSE 107; TEMP 36.8
== END 2023-07-10 13:11 | disposition home or self-care (01) ==
LOC: BCD 11:43 → OBS 12:23
PROVIDERS: Visit Provider Advanced Practice Midwife
DX: O36.8130 Decreased fetal movements, third trimester, not applicable or unspecified (principal); Z3A.35 35 weeks gestation of pregnancy
CPT/HCPCS: 59025

== ENCOUNTER 2023-07-13 20:31 | Outpatient (CLI) | payer MEDICAID, SELFPAY ==
[2023-07-13 21:18] VITALS: BP 117/71; PULSE 96
[2023-07-13 21:19] VITALS: BP 117/71; PULSE 96; TEMP 36.8
--- NOTE | 2023-07-14 07:41 | W.OBNST ---
Date of service: 07/13/23 Time of Service: 22:00 NST Evaluation Reason for NST Reasons for Nonstress Test: OTHER, SEE COMMENT Reason for NST Other: Possible rupture Gestational Age Gestational Age in Weeks and Days: 35 Weeks and 6Days Test and Monitor Explained Test/Monitor Explained: Test Explained, Monitor Explained and Patient Verbalized Understanding Vital Signs Blood Pressure: 117/71 Pulse: 96 Temperature: 98.3 F NST Information Date on Monitor: 07/13/23 Time on Monitor: 21:14 Date off Monitor: 07/13/23 Time off Monitor: 21:37 Total Time on Monitor: 23 NST Interventions: None NST Evaluation Patient States Movement: Present FHR Baseline: 135 Variability: Moderate 6-25 bpm Accelerations: 15x15 Decelerations: None NST Results: Reactive Note Ultrasound Done: DAVI Indication: R/O rupture of membranes Total DAVI: 13.1 Other Pertinent Findings: Heart Rate (140), Presentation (cephalic) and Placental Location (posterior) Coding for DAVI w/NST: Completed Exam. NST Note Note: SSE performed, neg for pooling, neg ferns Cvx 2/80% posterior, vtx -3, membranes intact VPS sent Keep next appt already scheduled but can cancel tomorrow's NST and DAVI NST Reviewed and Verified by: Shellie Groves
[2023-07-14 07:43] VITALS: BP 117/71; PULSE 96; TEMP 36.8
== END 2023-07-13 22:00 | disposition home or self-care (01) ==
LOC: BCD 20:32 → OBS 21:05
PROVIDERS: Visit Provider Advanced Practice Midwife
DX: O47.03 False labor before 37 completed weeks of gestation, third trimester (principal); Z3A.35 35 weeks gestation of pregnancy
CPT/HCPCS: 59025; 87480; 87510; 87660

== ENCOUNTER 2023-08-03 09:15 | Outpatient (CLI) | payer MEDICAID, SELFPAY ==
[2023-08-03 10:07] VITALS: BP 117/64; PULSE 82; TEMP 36.7
[2023-08-03 10:28] VITALS: BP 117/64; PULSE 82
--- NOTE | 2023-08-03 12:41 | PDOC.NST_ITS ---
Date of service: 08/03/23 Time of Service: 12:41 NST Evaluation Reason for NST Reasons for Nonstress Test: OTHER, SEE COMMENT Reason for NST Other: Not feeling well Gestational Age Gestational Age in Weeks and Days: 38 Weeks and 6Days Test and Monitor Explained Test/Monitor Explained: Test Explained and Monitor Explained Vital Signs Blood Pressure: 117/64 Pulse: 82 Temperature: 98.1 F NST Information Date on Monitor: 08/03/23 Time on Monitor: 10:05 Date off Monitor: 08/03/23 Time off Monitor: 10:44 Total Time on Monitor: 39 NST Interventions: PO Hydration NST Evaluation Patient States Movement: Present FHR Baseline: 145 Variability: Moderate 6-25 bpm Accelerations: 15x15 Decelerations: None NST Results: Reactive Note Ultrasound Done: N/A. NST Note Note: Екатерина called 08/01 and reported that she hasn't been feeling well. She requested a NST for reassurance of well being. She reports that she has been feeling better today. Heartburn and nausea. Taking ondansetron PRN. Return for visit tomorrow at [facility]. Reactive NST. Occasional mild contractions noted. Signs of labor reviewed. NST Reviewed and Verified by: Laina Adames
[2023-08-03 12:43] VITALS: BP 117/64; PULSE 82; TEMP 36.7
== END 2023-08-03 10:55 | disposition home or self-care (01) ==
LOC: BCD 09:16 → OBS 09:59
PROVIDERS: Visit Provider Advanced Practice Midwife
DX: O26.893 Other specified pregnancy related conditions, third trimester (principal); Z3A.38 38 weeks gestation of pregnancy
CPT/HCPCS: 59025

== ENCOUNTER 2023-08-08 20:04 | Inpatient (IN) | payer MEDICAID, SELFPAY ==
[2023-08-08] VITALS (33 sets, daily range): BP systolic 120–123; BP diastolic 70; PULSE 0–96; RESP 16; TEMP 36.6
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
[2023-08-08 20:29] LABS: HGB 10.6 g/dL (11.2-15.7); MCH 29.2 pg (27.0-33.0); MCHC 33.1 % (32.0-36.0); MCV 88 fL (80-95); MPV 11.8 fL (8.0-11.0); Platelet Count 250 10^3/uL (130-400); RBC 3.63 10^6/uL (3.93-5.22); RDW-SD 47.8 fL; WBC 9.29 10^3/uL (4.4-10.8)
[2023-08-08 20:32] LABS: ROM Plus Negative
--- NOTE | 2023-08-08 21:57 | PGE_ITS ---
Date of service: 08/08/23 Time of Service: 21:57 Informed Consent Informed Consent: Augmentation of Labor (no longer prefers expectant managment) and Risk,Benefits,Alternatives Discussed Assessment and Plan Assessment and plan (1) Full-term premature rupture of membranes (PROM) with unknown onset of labor: Status: Acute Assessment and plan: 1. Clinical assessment is consistent with ROM, patient declines SSE and would like to move forward with augmentation with Misoprostol VS possible SSE to see if ferning is negative and then potential discharge to home or continued expectant management. 2. Will augment with 50 mcg of Misoprostol and reassess in 4 hours or prn. KH Objective Abnormal lab results 08/08/23 Range/Units 20: RBC 3.63 L (3.93-5.22) 10^6/uL Hgb 10.6 L (11.2-15.7) g/dL Hct 32.0 L (36.0-46.0) % RDW 15.0 H (11.7-14.6) % MPV 11.8 H (8.0-11.0) fL Temp Pulse Resp BP 97.9 F 85 16 123/70 08/08/23 20:30 08/08/23 20:30 08/08/23 20:30 08/08/23 20:30 Laboratory Results WBC 9.29 10^3/uL (4.4-10.8) 08/08/23 20:22 RBC 3.63 10^6/uL (3.93-5.22) L 08/08/23 20:22 Hgb 10.6 g/dL (11.2-15.7) L 08/08/23 20:22 Hct 32.0 % (36.0-46.0) L 08/08/23 20:22 MCV 88 fL (80-95) 08/08/23 20:22 MCH 29.2 pg (27.0-33.0) 08/08/23 20:22 MCHC 33.1 % (32.0-36.0) 08/08/23 20:22 RDW 15.0 % (11.7-14.6) H 08/08/23 20:22 Plt Count 250 10^3/uL (130-400) 08/08/23 20:22 MPV 11.8 fL (8.0-11.0) H 08/08/23 20:22 Membranes Rupture Negative 08/08/23 20:00 ABO/Rh O Negative 08/08/23 20:22 Antibody Screen NEGATIVE 08/08/23 20:22 Subjective Interval history since last seen: I reviewed with Екатерина that ROM + is negative. I reviewed SSE can be done and if not in active labor and ferning is negative she could go home. She reports that she leaked onto floor of elevator, soaked her dress and has soaked 2 pads since arriving plus what she leaked at home. She is certain she is leaking fluid and prefers to stay. She also agrees to augmentation with Misoprostol at this time and declines expectant management. She prefer to try Misoprostol to see if it will get contractions going and that she might be able to avoid pitocin that way. 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 Results Hemoglobin/Hematocrit: Hgb 10.6 g/dL (11.2-15.7) L 08/08/23 20:22 Hct 32.0 % (36.0-46.0) L 08/08/23 20:22 Abnormal Lab Findings: Abnormal Labs 08/08/23 20:22 RBC 3.63 L Hgb 10.6 L Hct 32.0 L RDW 15.0 H MPV 11.8 H
[2023-08-08] MEDS: miSOPROStol 25 MCG TAB 50 MCG PO (22:23)
[2023-08-09] VITALS (205 sets, daily range): BP systolic 68–132; BP diastolic 40–78; PULSE 62–228; RESP 15–18; TEMP 36.6–37; O2SAT 80–100; BMI 31.4
[2023-08-09] MEDS: Lactated Ringers 1,000 ML 125 ML IV (04:14)
[2023-08-09] MEDS: Oxytocin/Normal Saline 30 UNIT/500 ML BAG 1 UNITS IV (04:14)
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
[2023-08-09] MEDS: FentaNYL/ROPIvacaine 2 mcg/ml and 0.1% 200 ML CADD Cassette EP (05:40)
--- NOTE | 2023-08-09 05:49 | W.PM.OBNL1 ---
Date of service: 08/09/23 Time of Service: 05:49 Informed Consent Informed Consent: Augmentation of Labor (no longer prefers expectant managment) and Risk,Benefits,Alternatives Discussed Pelvic Exam Comments: VE deferred Fetus A Monitor: Novii Heart Rate Baseline: 115 Variability: Moderate (6-25 BPM) Categories: Category I Accelerations: Present Decelerations: None Assessment and Plan Assessment and plan (1) Full-term premature rupture of membranes (PROM) with unknown onset of labor: Status: Acute Assessment and plan: 1. Will increase pitocin to achieve regular contractions that palpate strong and are 5/10 2. continue to expect NVD. 3. Dr. Guadarrama is aware of patient status and agrees to this plan of care. KH Objective Abnormal lab results 08/08/23 Range/Units 20:22 RBC 3.63 L (3.93-5.22) 10^6/uL Hgb 10.6 L (11.2-15.7) g/dL Hct 32.0 L (36.0-46.0) % RDW 15.0 H (11.7-14.6) % MPV 11.8 H (8.0-11.0) fL Temp Pulse Resp BP Pulse Ox 98.1 F 80 15 85/52 L 99 08/09/23 02:38 08/09/23 05:49 08/09/23 02:38 08/09/23 05:49 08/09/23 05:47 Laboratory Results WBC 9.29 10^3/uL (4.4-10.8) 08/08/23 20:22 RBC 3.63 10^6/uL (3.93-5.22) L 08/08/23 20:22 Hgb 10.6 g/dL (11.2-15.7) L 08/08/23 20:22 Hct 32.0 % (36.0-46.0) L 08/08/23 20:22 MCV 88 fL (80-95) 08/08/23 20:22 MCH 29.2 pg (27.0-33.0) 08/08/23 20:22 MCHC 33.1 % (32.0-36.0) 08/08/23 20:22 RDW 15.0 % (11.7-14.6) H 08/08/23 20:22 Plt Count 250 10^3/uL (130-400) 08/08/23 20:22 MPV 11.8 fL (8.0-11.0) H 08/08/23 20:22 Membranes Rupture Negative 08/08/23 20:00 ABO/Rh O Negative 08/08/23 20:22 Antibody Screen NEGATIVE 08/08/23 20:22 Subjective Interval history since last seen: Екатерина had some response to Misoprostol but after 4 hours agreed to Pitocin instead of a second dose of Miso. She then started to become more uncomfortable and requested epidural. 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 Results Hemoglobin/Hematocrit: Hgb 10.6 g/dL (11.2-15.7) L 08/08/23 20:22 Hct 32.0 % (36.0-46.0) L 08/08/23 20:22 Abnormal Lab Findings: Abnormal Labs 08/08/23 20:22 RBC 3.63 L Hgb 10.6 L Hct 32.0 L RDW 15.0 H MPV 11.8 H
[2023-08-09] MEDS: Ondansetron 4 MG/2 ML VIAL IVP (06:27)
[2023-08-09] MEDS: Lactated Ringers 1,000 ML 500 ML IV (06:37)
--- NOTE | 2023-08-09 06:53 | NUR.NOTE ---
For the time period of 414 until 0655. During this time period pt became more uncomfortable with her contractions, which continued to be Q 2 1/2 to 3 minutes apart. She requested an epidural . After epidural placed, loading dose given and infusion started, blood pressures began lowering, IV fluid rate was increased to 250 ml/hr, then 999 ml/hr and FHR began showing variable decels. Anesthesia administered 7 mg of ephedrine. BP began returning to pt's lower normal and FHR returned to a category 1 tracing. Pt had mild nausea and Zofran was given.
--- NOTE | 2023-08-09 07:10 | W.ANESNEU ---
Epidural/Spinal Catheter Date Performed: 08/09/23 Procedure Start: : Procedure Stop: 05:31 Requesting Provider: Laina Fernandez Procedure Location: Obstetrics Reason Performed: Labor Epidural Standard Monitors Applied: Blood Pressure and SpO2 Patient Position: Sitting Sedation Given (Indicate Dose Given): No Sedation given Patient Mental Status: Awake Sterility: Hand Hygiene, Surgical Cap, Surgical Mask, Sterile Gloves, Sterile Drape/Sheet and Chlorhexidine Procedure Location: L2-L3 Interspace Epidural Needle: Tuohy 17 Guage Needle Length: 3.5 Inch Needle Approach: Midline Epidural Procedure: KASI to Saline Used Catheter Placed?: Catheter Placed (wire reinforced. ) Test Dose (Indicate Dose Given): 3ml 1.5% Lidocaine with 1:200K Epinephrine Given Loss of Resistance Depth (cm): 4 Catheter depth at skin (cm): 9 Dressing: Sorbaview Dressing Placed and Dressing reinforced with Tape Epidural Provider Bolus (Indicate Dose Given): Total Ropivacaine 0.1% with Fentanyl 2mcg/ml Given from pump. (ml) Dose:: 7 mL Additives (Indicate Dose Given ): None Infusion Medication: Medication Infusion Began Medication Infusion: Ropivacaine 0.1% with Fentanyl 2mcg/ml Maintenance Infusion Rate (ml/hour): 7 PCEA Bolus Dose (ml): 5 Block Level: N/A Paresthesia: None Ultrasound: Used to carlos site Number of Attempts (See previous attempts in note section): 1 Procedure Tolerated: No Complications Procedure Outcome: Successful Procedure Comment:: Easy epidural placement with negative test dose. Loaded with 7 mL off the pump for which her MAP decreased. Fluid bolus was given along with 7 mg Ephedrine IV, with good effect. Educated on the PCEA function, and the fact that her mL/hr was lower than normal due to her seeming sensitivity to the bolus, and that is she is finding that she is not adequately covered to not hesitate and let us know. Performed By: Benjamín Chairez
--- NOTE | 2023-08-09 08:54 | OBVDS_ITS ---
Date of service: 08/09/23 Time of Service: 08:54 OB Labor/ Delivery Information Baby A Delivery Delivery Method: Spontaneaous Presentation: Cephalic Cephalic Position: Vertex Vertex Position: Right Occipital Anterior Cord Description-Baby A: 3 Vessels and Clamped/Cut (after 4 minutes of delayed cord clamping) Amniotic Fluid: Clear Estimated Blood Loss: 100 Delivery Outcome: Liveborn Complications: none noted Infant Transferred: Remains with Mother Providers Nurse Safe Deposit Clerk: Laina Fernandez Checkering Machine Operator: Benjamín Chairez Nurse: Eleonora Villagran Nurse: Morgan Serrano Labor/Delivery Information Number of Babies in Womb: 1 Steroids Given: None Group Beta Strep: Negative Antibiotics Administered: No Rubella Status: Equivocal Blood Type: O- Varicella Immunity: Immune Maternal Complications: None Shoulder Dystocia: No Note: Екатерина had SROM at 1700 on 08/08/23, presented for assessment and admission at approximately 1945. She had negative ROM + but had soaked through 2 pads and onto floor as well as her clothing. She preferred to continue on to delivery VS continued assessment for ROM and had a single dose of Misoprostol and then pitocin augmentation of labor. FHR tracing CAT I throughout except for a short period of time after epidural and noted maternal hypotension that resolved with ephedrine IV and IV fluid bolus. She progressed to 10 cm at 0821 and began to push involuntarily. Second stage huddle was held and it was noted that there is some risk for uterine atony based on patient's inability to void after epidural was placed this morning. Baby Wilmer delivered ALY, over intact perineum and vagina at 0831. Baby was placed skin to skin and was vigorous. 9 and 9. Cord was double clamped and cut by FOB at 4 minutes of age. Pitocin per protocol was run after baby delivered. Placenta delivered via allen mechanism, intact at 0846. Fundus and lower uterine segment were noted to be firm. 100 EBL. Vagina and perineum are intact. Екатерина plans to breast feed her son. They do not plan circumcision. Mother and baby are in satisfactory condition. Expect 24- 48 hour stay and normal PP course. See completed delivery record for weight. KH Stages of Labor Onset of Labor Date: 08/08/23 Onset of Labor Time: 17:00 Complete Dilatation Date: 08/09/23 Complete Dilatation Time: 08:21 Labor - Stage 1 Duration: 15 hours and 21 minutes ROM Baby A: 08/08/23 ROM Baby A: 17:00 Delivery Date-Baby A: 08/09/23 Delivery Time-Baby A: 08:38 Labor Stage 2 Duration: 17 minutes Placenta Delivery Date-Baby A: 08/09/23 Placenta Delivery Time-Baby A: 08:46 Labor-Stage 3 Duration: 8 minutes Total Length of Labor-Baby A: 15 hours and 38 minutes Baby A Length-Baby A: 19.75 in
--- NOTE | 2023-08-09 14:25 | W.ANESPOSTOP ---
Postoperative Evaluation Date, Time and Location Date Performed: 08/09/23 Time Performed: 14:25 Patient Location: Obstetrics Vital Signs Most Recent Imported Vital Signs: Most Recent Vital Signs Temp Pulse Resp BP Pulse Ox 36.6 C 77 18 118/67 80 L 08/09/23 07:56 08/09/23 10:53 08/09/23 07:56 08/09/23 10:53 08/09/23 08:40 Pain Score Most Recent Pain Score: Most Recent Pain Score Pain Level [Genital] 0 08/09/23 09:31 Pain Level 3 08/09/23 08:04 Assessment Mental Status: Awake (Alert & Oriented to Patient Baseline) Airway and Respiratory Function: Patent airway with normal (patient baseline) respiratory exam Cardiovascular Function: Hemodynamically Stable Hydration Status: Adequately Hydrated Nausea & Vomiting: No Nausea or Vomiting Pain: Pain is tolerable per patient Peripheral Nerve Block: Patient did not receive a nerve block
[2023-08-09] MEDS: Acetaminophen 325 MG TAB 650 MG PO ×2 (14:28→22:35)
[2023-08-09] MEDS: Ibuprofen 600 MG TAB PO ×2 (14:28→22:35)
[2023-08-09] MEDS: Hamamelis Leaf/Glycerin 100 EACH BOX PR ×2 (14:31→17:09)
[2023-08-09] MEDS: Dibucaine 1% 28 GM TUBE TP (17:08)
[2023-08-10 01:44] VITALS: BP 118/74; PULSE 81; RESP 16; TEMP 37
[2023-08-10 08:00] VITALS: BP 115/67; PULSE 82; RESP 16; TEMP 36.6; O2SAT 99
[2023-08-10] MEDS: Acetaminophen 325 MG TAB 650 MG PO (08:24)
[2023-08-10] MEDS: Ibuprofen 600 MG TAB PO (08:24)
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
[2023-08-10] MEDS: Measles, Mumps, & Rubella Vaccine 0.5 ML VIAL SC (09:48)
[2023-08-10] MEDS: RHO(D) Immune Globulin 1,500 UNIT Syringe 1500 UNIT IM (11:14)
== END 2023-08-10 13:30 | disposition home or self-care (01) | DRG 807 ==
LOC: BCD 20:39 → OBS 20:39
PROVIDERS: Admitting Provider Advanced Practice Midwife; Visit Provider Advanced Practice Midwife
DX: O42.92 Full-term premature rupture of membranes, unspecified as to length of time between rupture and onset of labor (principal); Z37.0 Single live birth; Z3A.39 39 weeks gestation of pregnancy; O26.53 Maternal hypotension syndrome, third trimester; O99.02 Anemia complicating childbirth; D64.9 Anemia, unspecified; O99.344 Other mental disorders complicating childbirth; F41.8 Other specified anxiety disorders; Z67.91 Unspecified blood type, Rh negative; O26.893 Other specified pregnancy related conditions, third trimester
CPT/HCPCS: 84112; 85027; 85461; 86850; 86900; 86901; 90384; 90707; J2405; J2790; J3490

== ENCOUNTER 2023-10-21 09:47 | Outpatient (REF) | payer MEDICAID, SELFPAY ==
[2023-10-22 12:15] LABS: Chlamydia Result Negative (Negative); GC Result Negative (Negative)
== END 2023-10-21 09:48 | disposition home or self-care (01) ==
LOC: LBN 09:47
PROVIDERS: Visit Provider Nurse Practitioner Women's Health
DX: Z11.3 Encounter for screening for infections with a predominantly sexual mode of transmission (principal); Z30.430 Encounter for insertion of intrauterine contraceptive device
CPT/HCPCS: 87491; 87591